=== PATIENT | male | born 1955 | race Caucasian/White ===

== ENCOUNTER → 2017-10-28 | Outpatient (CLI) | payer OTHER | LOC: FIMAGING 07:20 | PROVIDERS: ATTEND Radiology Diagnostic Radiology | DX: I83.813 Varicose veins of bilateral lower extremities with pain (principal); I83.893 Varicose veins of bilateral lower extremities with other complications ==

== ENCOUNTER 2018-01-01 07:38 | Day surgery (SDC) | payer OTHER ==
[2018-01-01] MEDS ORDERED: NS 1,000 ML IV ONE (07:42)
[2018-01-01] MEDS ORDERED: ceFAZolin 2 GM/SWFI 2 GM/20 ML SYR IVP ONE ×2 (07:42→08:36)
[2018-01-01] MEDS ORDERED: NALOXONE HCL 0.4 MG/ML INJ IVP PRN (07:42)
[2018-01-01] MEDS ORDERED: ONDANSETRON 4 MG/2 ML VIAL IVP ONE (07:42)
[2018-01-01] MEDS ORDERED: fentaNYL 100 MCG/2 ML INJ IVP PRN (07:42)
[2018-01-01] MEDS ORDERED: FLUMAZENIL 0.5 MG/5 ML MDV IVP PRN (07:42)
[2018-01-01] MEDS ORDERED: MIDAZOLAM 2 MG/2 ML VIAL IVP PRN (07:42)
[2018-01-01] MEDS ORDERED: MIDAZOLAM 2 MG/2 ML VIAL ONE ×2 (07:53→09:59)
[2018-01-01] MEDS ORDERED: NALOXONE HCL 0.4 MG/ML INJ ONE (07:53)
[2018-01-01] MEDS ORDERED: fentaNYL 100 MCG/2 ML INJ ONE ×2 (07:53→09:59)
[2018-01-01] MEDS ORDERED: FLUMAZENIL 0.5 MG/5 ML MDV IVP ONE (07:53)
[2018-01-01] MEDS ORDERED: CEFAZOLIN 2 GM/DEXTROSE/100 ML BAG IV ONE (07:54)
[2018-01-01] MEDS ORDERED: SODIUM TETRADECYL SULFATE 3% 2 ML VIAL IV ONE (07:58)
[2018-01-01] MEDS ORDERED: LIDO/EPI 1% **for epidural** 30 ML SDV ONE (07:58)
[2018-01-01] MEDS ORDERED: ceFAZolin 2 GM/DEXTROSE 100 ML IV ONE (08:00)
--- NOTE | 2018-01-01 08:56 | PDGENHP ---
History & Physical Chief Complaint: BILATERAL VARICOSE VEINS History of Present Illness: BULGING VARICOSE VEINS WITH SYMPTOMS. PLEASE SEE PRIOR CONSULT FOR DETAILS. Pertinent Past, Social, Family History: N/A. NON-SMOKER. Relevant Physical Exam: LARGE ROPEY VARICOSE VEINS MAPPED OUT. Cardiorespiratory Assessment: RRR, CTA
--- NOTE | 2018-01-01 08:57 | PDPROPOC ---
Sedation Plan of Care Sedation Plan of Care: vital signs stable, mental status noted, patient educated of risks, benefits, alternatives, patient can tolerate sedation Planned drugs: fentanyl, midazolam Mallampati Score: Class 1 Mallampati Reference Image: Patient passed 3-3-2 rule?: Yes
[2018-01-01] MEDS ORDERED: IBUPROFEN 200 MG TAB PO ONE (10:39)
[2018-01-01] MEDS ORDERED: HYDROCODONE/APAP 5/325 TAB PO PRN (10:39)
[2018-01-01] MEDS ORDERED: NS 1,000 ML IV SCH (10:45)
--- NOTE | 2018-01-01 11:02 | PDRADPN ---
Radiology Procedure Note Date of Procedure: 01/01/18 Radiologist: Blanca Lin Anesthesia: IV Sedation Pre-op Diagnosis: VARICOSE VEINS Post-op Diagnosis: SAME Indication: SYMPTOMS PREVIOUSLY STATED IN CONSULT Procedure: RLE LASER, PHLEBECTOMY, AND SCLEROTHERAPY Finding(s): SEE REPORT Inf/Abcess present in the surg proc area at time of surgery?: No
[2018-01-01 13:07] VITALS: BP 127/76
== END 2018-01-01 13:36 | disposition home or self-care (01) ==
LOC: FIMAGING 07:38
PROVIDERS: ATTEND Radiology Diagnostic Radiology
PROC: 06DP3ZZ Extraction of Right Saphenous Vein, Percutaneous Approach (ICD-10-PCS; principal; 2018-01-01 10:30)
PROC: 3E033TZ Introduction of Destructive Agent into Peripheral Vein, Percutaneous Approach (ICD-10-PCS; principal; 2018-01-01 10:30)
PROC: 065P3ZZ Destruction of Right Saphenous Vein, Percutaneous Approach (ICD-10-PCS; principal; 2018-01-01 10:30)
DX: I83.91 Asymptomatic varicose veins of right lower extremity (principal)
CPT/HCPCS: J0690; J2250; J2310; J3010

== ENCOUNTER 2018-01-02 07:31 | Day surgery (SDC) | payer OTHER ==
[2018-01-02] MEDS ORDERED: FLUMAZENIL 0.5 MG/5 ML MDV IVP ONE (07:43)
[2018-01-02] MEDS ORDERED: NALOXONE HCL 0.4 MG/ML INJ ONE (07:43)
[2018-01-02] MEDS ORDERED: MIDAZOLAM 2 MG/2 ML VIAL ONE ×3 (07:43→10:02)
[2018-01-02] MEDS ORDERED: fentaNYL 100 MCG/2 ML INJ ONE ×2 (07:44→10:01)
[2018-01-02] MEDS ORDERED: CEFAZOLIN 2 GM/DEXTROSE/100 ML BAG IV ONE (07:44)
[2018-01-02] MEDS ORDERED: SODIUM TETRADECYL SULFATE 3% 2 ML VIAL IV ONE (07:54)
[2018-01-02] MEDS ORDERED: LIDO/EPI 1% **for epidural** 30 ML SDV ONE (07:54)
[2018-01-02] MEDS ORDERED: NALOXONE HCL 0.4 MG/ML INJ IVP PRN (08:04)
[2018-01-02] MEDS ORDERED: MIDAZOLAM 2 MG/2 ML VIAL IVP PRN (08:04)
[2018-01-02] MEDS ORDERED: ceFAZolin 2 GM/SWFI 2 GM/20 ML SYR IVP ONE (08:04)
[2018-01-02] MEDS ORDERED: NS 1,000 ML IV ONE (08:04)
[2018-01-02] MEDS ORDERED: FLUMAZENIL 0.5 MG/5 ML MDV IVP PRN (08:04)
[2018-01-02] MEDS ORDERED: fentaNYL 100 MCG/2 ML INJ IVP PRN (08:04)
[2018-01-02] MEDS ORDERED: ONDANSETRON 4 MG/2 ML VIAL IVP ONE (08:04)
--- NOTE | 2018-01-02 08:35 | PDGENHP ---
History & Physical Chief Complaint: LLE VARICOSE VEINS History of Present Illness: SYMPTOMATIC LLE VARICOSE VEINS Pertinent Past, Social, Family History: N/A Relevant Physical Exam: LARGE ROPEY VARICOSE VEINS. MILD BRUSING FROM RT LEG. Cardiorespiratory Assessment: RRR, CTA
--- NOTE | 2018-01-02 08:36 | PDPROPOC ---
Sedation Plan of Care Sedation Plan of Care: vital signs stable, mental status noted, patient educated of risks, benefits, alternatives, patient can tolerate sedation ASA Classification: ASA 2 Planned drugs: fentanyl, midazolam Mallampati Score: Class 1 Mallampati Reference Image: Patient passed 3-3-2 rule?: Yes
[2018-01-02] MEDS ORDERED: ceFAZolin 2 GM/DEXTROSE 100 ML IV ONE (10:00)
--- NOTE | 2018-01-02 10:58 | PDRADPN ---
Radiology Procedure Note Date of Procedure: 01/02/18 Radiologist: Blanca Lin Anesthesia: IV Sedation Pre-op Diagnosis: LLE VARICOSE VEINS Post-op Diagnosis: SAME Indication: CELLULITIS AND DISCOLORATION Procedure: LASER, SCLEROTHERAPY, PHLEBECTOMY Inf/Abcess present in the surg proc area at time of surgery?: No
[2018-01-02 12:09] VITALS: BP 115/70
== END 2018-01-02 13:31 | disposition home or self-care (01) ==
LOC: FIMAGING 07:31
PROVIDERS: ATTEND Radiology Diagnostic Radiology
PROC: 06LQ3ZZ Occlusion of Left Saphenous Vein, Percutaneous Approach (ICD-10-PCS; principal; 2018-01-02 10:40)
PROC: 3E033TZ Introduction of Destructive Agent into Peripheral Vein, Percutaneous Approach (ICD-10-PCS; principal; 2018-01-02 10:40)
PROC: 06DQ3ZZ Extraction of Left Saphenous Vein, Percutaneous Approach (ICD-10-PCS; principal; 2018-01-02 10:40)
DX: I83.92 Asymptomatic varicose veins of left lower extremity (principal)
CPT/HCPCS: J0690; J2250; J2310; J3010

== ENCOUNTER → 2018-02-27 | Outpatient (CLI) | payer OTHER | LOC: FIMAGING 15:51 | PROVIDERS: ATTEND Radiology Diagnostic Radiology | DX: Z48.812 Encounter for surgical aftercare following surgery on the circulatory system (principal) ==